=== PATIENT | female | born 1935 | race Caucasian/White ===

== ENCOUNTER 2020-08-09 08:44 | Emergency (ER) | payer SELFPAY ==
[~2020-08-09] VITALS: Ht 170.2 cm; Wt 90.7 kg
[2020-08-09] MEDS ORDERED: PRESERVISION A1 EACH PO (08:57)
[2020-08-09] MEDS ORDERED: BAYER CHEWABLE81 MG PO (08:57)
--- NOTE | 2020-08-10 16:55 | EKG ---
[facility] [address] [facility] [place] [address] Signed Atrial fibrillation Abnormal ECG No previous ECGs available Confirmed by KIKE MOELLER MD ([id number]) on 08/10/2020 4:55:36 PM Electronically Signed By: KIKE MOELLER MD 08/10/20 1655 PATIENT NAME: AUDI STOUT Electrocardiogram DATE OF : 33 PHYSICIAN: KIKE MOELLER MD REPORT #: [id number] REPORT IS CONFIDENTIAL AND NOT TO BE RELEASED WITHOUT AUTHORIZATION
== END 2020-08-09 17:36 | disposition short-term general hospital (02) ==
LOC: ED 08:44
DX: D64.9 Anemia, unspecified (principal); N39.0 Urinary tract infection, site not specified; N32.9 Bladder disorder, unspecified; I48.91 Unspecified atrial fibrillation; Z87.891 Personal history of nicotine dependence; Z79.82 Long term (current) use of aspirin; Z79.899 Other long term (current) drug therapy; Z20.822 Contact with and (suspected) exposure to COVID-19
CPT/HCPCS: 51701; 51798; 74176; 80048; 80076; 81001; 82977; 83540; 83615; 84466; 84484; 85025; 85045; 85610; 85730; 86850; 86900; 86901; 86920; 93005; 93010; 99285-25; C9803; J0696; J2060; J7030; P9016; U0003

== ENCOUNTER 2020-10-10 08:42 | Emergency (ER) | payer SELFPAY ==
[~2020-10-10] VITALS: Ht 170.2 cm; Wt 90.7 kg
[~2020-10-10 08:42] MED LIST: BAYER CHEWABLE81 MG PO; PRESERVISION A1 EACH PO
[2020-10-10] MEDS ORDERED: MORPHINE S100 MG/5 M PO (09:31)
== END 2020-10-10 12:26 | disposition home or self-care (01) ==
LOC: ED 08:42
DX: R10.30 Lower abdominal pain, unspecified (principal); M54.9 Dorsalgia, unspecified; Z51.5 Encounter for palliative care; Z87.891 Personal history of nicotine dependence; Z79.82 Long term (current) use of aspirin; Z85.51 Personal history of malignant neoplasm of bladder
CPT/HCPCS: 96374; 96376; 99284-25; J2270